=== PATIENT | male | born 1990 | race Caucasian/White ===

== ENCOUNTER 2017-06-20 08:28 | Emergency (ER) | payer SELFPAY ==
[~2017-06-20] VITALS: Ht 177.8 cm; Wt 86.2 kg
[~2017-06-20 08:28] MED LIST: ALBUPOW25 XX; DOXY75CA4; FLUTPOW XX; HYDR-1421; MOME220A IN
[2017-06-20 09:09] VITALS: BP 118/77
== END 2017-06-20 09:30 | disposition home or self-care (01) ==
LOC: ER 08:28
DX: T78.40XA Allergy, unspecified, initial encounter (principal); J45.909 Unspecified asthma, uncomplicated; F17.290 Nicotine dependence, other tobacco product, uncomplicated

== ENCOUNTER 2019-02-11 08:20 | Emergency (ER) | payer BC, OTHER ==
[~2019-02-11] VITALS: Ht 180.3 cm; Wt 95.3 kg
[2019-02-11 10:36] VITALS: BP 116/76
== END 2019-02-11 11:01 | disposition home or self-care (01) ==
LOC: ER 08:20
DX: S09.90XA Unspecified injury of head, initial encounter (principal); J45.909 Unspecified asthma, uncomplicated; W19.XXXA Unspecified fall, initial encounter; Y93.89 Activity, other specified; Y99.8 Other external cause status; Y92.89 Other specified places as the place of occurrence of the external cause
CPT/HCPCS: 70450; 72125